=== PATIENT | male | born 1995 | race Caucasian/White ===

== ENCOUNTER 2020-01-08 09:14 | Emergency (ER) | payer SELFPAY ==
[~2020-01-08] VITALS: Ht 182.9 cm; Wt 100.0 kg
[2020-01-08] MEDS ORDERED: DIPH25CA83 PO (09:30)
[2020-01-08 09:55] VITALS: BP 124/67
== END 2020-01-08 10:00 | disposition home or self-care (01) ==
LOC: ER 09:15
DX: L50.9 Urticaria, unspecified (principal); Z79.899 Other long term (current) drug therapy
CPT/HCPCS: 99282